=== PATIENT | female | born 2000 | race Caucasian/White ===

== ENCOUNTER 2021-07-26 10:43 | Outpatient (CLI) | payer BC, MEDICAID, SELFPAY ==
[2021-07-28 09:38] LABS: Lymphoma Profile (BBPL) See Report
== END 2021-07-26 10:44 | disposition home or self-care (01) ==
PROVIDERS: PCP Family Medicine; Visit Provider Specialist
DX: R22.1 Localized swelling, mass and lump, neck (principal)
CPT/HCPCS: 88184; 88185; 88309; 88342

== ENCOUNTER 2021-08-02 15:04 | Outpatient (CLI) | payer OTHER, SELFPAY ==
[2021-08-02 16:50] LABS: Basophils # 0.1 10^3/uL (0.0-0.1); Basophils % 0.5 %; Eosinophils # 0.1 10^3/uL (0.0-0.8); Eosinophils % 0.5 %; Hematocrit 44.5 % (37.0-47.0); Hemoglobin 14.3 g/dL (11.5-15.3); Lymphocytes # 1.8 10^3/uL (1.5-6.5); Lymphocytes % 19.4 %; Mean Corpuscular HGB Conc 32.1 g/dL (30.0-36.0); Mean Corpuscular Hemoglobin 27.8 pg (28.0-34.0); Mean Corpuscular Volume 86.6 fl (81-99); Mean Platelet Volume 10.2 fL (7.4-10.4); Monocytes # 0.6 10^3/uL (0.2-0.9); Monocytes % 6.4 %; Neutrophils # 6.63 10^3/uL (1.8-8.0); Neutrophils % 72.5 %; Nucleated Red Blood Cells % 0 %; Platelet Count 468 10^3/cmm (130-400); Red Blood Count 5.14 10^6/uL (4.1-5.3); Red Cell Distribution Width 12.9 % (12.1-15.1); White Blood Count 9.2 10^3/uL (4.5-13.0)
[2021-08-02 17:10] LABS: Alanine Aminotransferase 28 U/L (0-33); Albumin Level 4.4 g/dL (3.5-5.2); Alkaline Phosphatase 58 IU/L (35-105); Anion Gap 13.2 (5-19); Aspartate Amino Transferase 16 U/L (0-32); Blood Urea Nitrogen 12 mg/dL (6-20); Calcium 9.6 mg/dL (8.5-10.5); Carbon Dioxide 24 mmol/L (22-29); Chloride 101 mmol/L (98-107); Globulin 3.7 g/dL (1.3-4.6); Glomerular Filtration Rate 157.3 mL/min (90-130); Glucose 87 mg/dL (65-115); Lactate Dehydrogenase 171 U/L (135-214); Osmolality Calculated 277 mOsm/kg (285-295); Potassium 4.2 mmol/L (3.5-5.1); Sodium 134 mmol/L (136-145); Total Bilirubin 0.2 mg/dL (0.15-1.2); Total Protein 8.1 g/dL (6.6-8.7)
[2021-08-02 17:26] LABS: Erythrocyte Sedimentation Rate 72 mm/hr (0-15)
[2021-08-02 17:33] LABS: Hepatitis A Antibody IgM Non-Reactive (Nonreactive); Hepatitis B Core AB, Total Non-Reactive (Nonreactive); Hepatitis B Surface AB 3.5 (11.5-1000); Hepatitis B Surface Antigen Non-Reactive (Nonreactive); Hepatitis C Virus Antibody Non-Reactive (Nonreactive)
[2021-08-02 19:53] LABS: HIV 1 & 2 Antibody Non-Reactive (Non-Reactiv); HIV 1 & 2 Antigen Non-Reactive (Non-Reactiv)
--- NOTE | 2021-08-03 13:14 | ONC CON_ITS ---
Dr. Stewart New Patient Note Patient: Aby Biswas Unit #: [id number]: 2000 Dicatated By: Armaan Stewart M.D.Date of Visit: Aug 02, 2021 Onc MED New Patient/Consult Referring Physician: Dr. Arian Poe M.D. Chief Complaint: Hodgkin lymphoma. History of Present Illness: This is a 20-year-old woman with newly diagnosed classic Hodgkin lymphoma, nodular sclerosis subtype, involving a left level 4 cervical lymph node. In the latter part of March 2021 she noted abrupt onset of a lump in the left side of her neck. She says it just popped up overnight, and it was initially sore and tender, but it subsequently went down. An ultrasound of the neck on 04/03/2021 showed a large round hypoechoic mass in the left supraclavicular region measuring 1.9 x 1.5 x 1.6 cm. It demonstrated increased peripheral vascularity, but no central vascularity. The findings were consistent with abnormal left supraclavicular mass/lymph node. She was referred to Dr. Poe. Her initial FNA biopsy was nondiagnostic. She had further evaluation with MRI, but I do not have that report available. She ultimately underwent an incisional biopsy of left level 4 cervical lymph node on 07/28/2021. Pathology was consistent with classic Hodgkin lymphoma, nodular sclerosis subtype. By IHC the lymphoma cells were positive for CD15, CD30, Mum 1, and ROMMEL CISH. They were negative for CD20, CD45 LCA, ALK, and CD3. She is seen now for further management. She complains that she is really fatigued. She has noticed that getting worse over a period of a year to year and a half. She is still working, but she is now planning to go down to part-time. Her ECOG score is 1. Her appetite is good and her weight is stable. She has no fever, night sweats, or hot flashes. She has occasional sinus drainage. She has not had sore mouth or throat, and she has no difficulty swallowing. She does not complain of cough, and she has not been having shortness of breath or chest pain. Recently she has had some nausea and she sometimes has acid reflux. Her bowels have been fluctuating between diarrhea and constipation. Bladder function has been okay. Her menstrual periods have been normal. She has had pain occasionally in her left hand following a previous fracture. She has no other joint or bone pain. She currently is not having headache and she does not complain of dizziness. She has no numbness/paresthesia or other focal neurologic symptoms. She does report having some anxiety. Past Medical History: She has a history of migraine headaches and a history of recurrent tonsillitis. She has had no prior ongoing medical illnesses. Past Surgical History: She underwent FNA biopsy of left cervical lymph node followed by incisional biopsy of left level IV cervical lymph node on 07/28/2021. She has had no prior surgeries. Medications: .10/02 1 Tablet Oral daily Allergies: No Known Allergies. Social History: Ms. Biswas is single. She is a nonsmoker, but she occasionally vapes. She does not drink alcohol. Family History: Both parents are in good health, mother at age 63 and father at age 58. A 32-year-old brother has mental illness and he has been treated for pericarditis. A 29-year-old sister is in good health. His maternal grandmother has been treated for a large cell cancer in the chest area, apparently of unknown primary. His maternal grandfather has coronary artery disease. Family history on her father's side is otherwise unknown, as her father was adopted. Review Of Symptoms: Constitutional - She complains that she is really fatigued. Thus far she has maintained normal activity, but she is planning to go down to part-time work. Her appetite has been okay and her weight is stable. She has no fever, night sweats, or hot flashes. ECOG score is 1, Eyes - She has had some decline in vision, ENMT - No hearing loss or tinnitus. She has occasional sinus drainage. No mouth sores. No sore throat or difficulty swallowing, Hematologic/Lymphatic - No abnormal bruising or bleeding, Respiratory - No shortness of breath. No cough. No pleuritic pain or hemoptysis, Cardiovascular - No angina pain. No palpitations, Gastrointestinal - Recently she has had some nausea. She sometimes has acid reflux. Her bowels have fluctuated between diarrhea and constipation. No blood in the stool or black stools, Genitourinary (F) - No dysuria or hematuria. She reports having frequent urination. No urgency or incontinence, Musculoskeletal - She has had pain at times in her left hand subsequent to a previous fracture. She has no other joint or bone pain, Integumentary - No skin rash or other skin changes, Neurologic - She has a history of migraine, but she currently is not complaining of headache or dizziness. She has no numbness/tingling or other focal neurologic symptoms, Psychiatric - She has anxiety but not depression. She sometimes has difficulty sleeping. Vital Signs: Performed on Aug 02, 2021 15:46: 5, 0, 24.60, 1.57 sq.m, 61 in, 96 %, 109 /min (HIGH), 18 /min, 124/84 mm(hg), 97.9 F (LOW), and 130.2 lbs (HIGH). Physical Examination: Constitutional - She appears to be in good general health, Eyes - Sclerae nonicteric. Conjunctivae clear, ENMT - No lesions noted in the oral cavity, Neck - No mass or thyromegaly, Hematologic/Lymphatic - There is some induration at the biopsy site in the medial aspect of the left supraclavicular fossa. There is no cervical, clavicular, or axillary adenopathy noted at this time, Respiratory - Lungs are clear with good air movement bilaterally, Cardiovascular - Heart rhythm is regular. There is no murmur, gallop, or rub noted, Abdomen - Soft and non-tender. Liver and spleen are not enlarged. There is no abdominal mass or ascites noted and there is no inguinal adenopathy, Back/Spine - No spine or CVA tenderness noted, Extremities - No edema. Pedal pulses are palpable bilaterally, Integumentary - No rashes. No suspicious skin lesions noted, Neurologic - No focal neurologic deficits noted. Problem List: 1. Classic Hodgkin lymphoma, nodular sclerosis subtype, involving a left level IV lymph node. 2. History of recurrent tonsillitis. 3. History of migraine headaches. Problems Addressed with this Encounter and Plan: Patient with newly diagnosed classic Hodgkin lymphoma, nodular sclerosis subtype, involving a left level IV cervical lymph node. She has not completed staging, but by clinical evaluation she does appear to have early stage disease, and she should have a favorable prognosis with treatment. The pathology results were reviewed with the patient and her family, and we discussed the clinical implications. She does need a PET scan to complete staging, but assuming she has early stage disease, the probability of cure with appropriate treatment will be very high. The standard treatment for early stage disease would be ABVD chemotherapy for 2 cycles, following which her further treatment will be guided by restaging PET/CT. Given her young age, I am going to recommend that she be seen at a tertiary facility for specific treatment recommendations, either at [facility] or [facility]. Among other things, her management will need to take fertility issues into consideration. The scheduling of the PET/CT was to be initiated by Dr. Poe's office, and I will check on that tomorrow. In the meantime, she will have baseline laboratory studies to include CBC, comprehensive metabolic profile, sed rate, LDH level, TSH level, and HIV and hepatitis screening. Signed By: Armaan Stewart M.D. <<Signature on File>>
== END 2021-08-02 15:05 | disposition home or self-care (01) ==
LOC: ONCMED 15:11
PROVIDERS: PCP Family Medicine; Visit Provider Internal Medicine Medical Oncology
DX: C81.11 Nodular sclerosis Hodgkin lymphoma, lymph nodes of head, face, and neck (principal); J03.91 Acute recurrent tonsillitis, unspecified; Z86.69 Personal history of other diseases of the nervous system and sense organs; Z86.19 Personal history of other infectious and parasitic diseases; Z79.899 Other long term (current) drug therapy
CPT/HCPCS: 36415; 80053; 83615; 85025; 85651; 86705; 86706; 86709; 86803; 87340; 87806; 99205

== ENCOUNTER 2021-08-20 03:06 | Emergency (ER) | payer OTHER, BC, MEDICAID, SELFPAY ==
[2021-08-20] VITALS (14 sets, daily range): BP systolic 105–139; BP diastolic 75–87; PULSE 66–109; RESP 7–31; TEMP 36.2; O2SAT 97–100; BMI 24.5
--- NOTE | 2021-08-20 03:15 | XRR_ITS ---
PROCEDURE INFORMATION: Exam: XR Chest Exam date and time: 08/20/2021 4:00 AM Age: 20 years old Clinical indication: Pain; Chest pressure; Additional info: Cp TECHNIQUE: Imaging protocol: XR of the chest. Views: 1 view. COMPARISON: [place] [facility] [place] Chest 2 views 01/16/2019 4:50 PM FINDINGS: Lungs: Unremarkable. No consolidation. Pleural spaces: Unremarkable. No pleural effusion. No pneumothorax. Heart/Mediastinum: Unremarkable. No cardiomegaly. Bones/joints: Unremarkable. XR/XR chest 1V portable [id number] IMPRESSION: No acute findings.
--- NOTE | 2021-08-20 03:15 | ECG_ITS ---
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 Measurements Intervals [place] Rate: 88 P: 58 ID: [id number] QRS: 61 QRSD: 82 T: 47 QT: 334 QTc: 405 Interpretive Statements SINUS RHYTHM No previous ECG available for comparison Electronically Signed On 08-20-2021 16:10:44 CDT by Nisha Alvarado M.D. [id number]
--- NOTE | 2021-08-20 03:16 | ED_ITS ---
HPI - Chest Pain General: Chief Complaint: Chest Pain Stated Complaint: N\Chest Pains Time Seen by Provider: 08/20/21 03:13 Source: patient Mode of arrival: ambulatory Limitations: no limitations History of Present Illness: 20-year-old female who has a history of Hodgkin's lymphoma states she just began chemotherapy last week states that tonight she started having a sharp pain in the center of her chest. States the pain is 4-5 out of 10 denies any worsening improving factors. She states she has had some shortness of breath. Denies any cough or fever no vomiting or diarrhea. Associated symptoms: Reports dyspnea; Deny abdominal pain, fever(s), nausea or vomiting Review of Systems Const: Denies: fever(s), chills, body aches or change in appetite Eyes: Denies: blurry vision or eye discomfort ENMT: Denies: throat pain or dental pain Card: Reports: chest pain Resp: Reports: dyspnea GI: Denies: abdominal pain, nausea, vomiting or diarrhea : Denies: dysuria Musc: Denies: neck pain or back pain Skin/Breast: Denies: rash Neuro: Denies: headache(s) Psych: Denies: depression Farooq/Lymph: Denies: easy bruising All/Imm: Denies: urticaria PFSH ED PFSH: Medical History (Updated 08/20/21 @ 04:35 by Eugenie Tobias MD) Hodgkin lymphoma Menorrhagia with irregular cycle No pertinent past medical history neghx: htn,dm,thyroid,dvt/pe PCP: Dr. Muse Surgical History No pertinent past surgical history Family History Grandfather Heart disease Maternal grandfather Hypertension Maternal grandfather Mother Hypercholesteremia Denies family history of Colon cancer Ovarian cancer Diabetes Breast cancer Uterine cancer Thyroid disease Stroke Physical Exam Const: COMMON NORMALS: no acute distress, patient oriented x3 and healthy appearing HENMT: COMMON NORMALS: normocephalic and atraumatic HEAD & SCALP: normocephalic and atraumatic Eye: COMMON NORMALS: Equal, round and reactive pupils present and EOMs intact bilaterally PUPIL: Yes Equal, round and reactive pupils present Neck/C-Spine: COMMON NORMALS: full ROM and supple Chest: COMMONS NORMALS: normal inspection of the chest and normal palpation of entire chest wall Resp: COMMON NORMALS: normal respiratory effort, No retractions, No use of accessory muscles and clear to auscultation bilaterally AUSCULTATION: clear to auscultation bilaterally Cardio: COMMON NORMALS: regular rate, regular rhythm and No murmurs present (Cardio) RATE: regular rate RHYTHM: regular rhythm GI: COMMON NORMALS: Normal to inspection, nondistended, normoactive bowel sounds present, Soft to palpation, non-tender and no masses PALPATION: Yes Soft to palpation Extremity: COMMON NORMALS: normal to inspection and full ROM Neuro: COMMON NORMALS: patient oriented x3, moves all extremities and no focal motor deficits Psych: COMMON NORMALS: mental status grossly normal, Normal thought process present and cooperative THOUGHT PROCESS: Normal thought process present Skin: COMMON NORMALS: no rashes or lesions noted and no wounds GENERAL SKIN EXAM: no rashes or lesions noted Course Vital Signs: Vital signs: Vital Signs Temperature 97.2 F L 08/20/21 03:12 Pulse Rate 84 08/20/21 04:15 Respiratory Rate 14 08/20/21 04:15 Blood Pressure 122/79 08/20/21 04:15 Pulse Oximetry 100 08/20/21 04:15 MDM - Chest Pain Medical Decision Making StandsPatient presents for chest pain that is atypical in nature she does have a history of lymphoma D-dimer is mildly elevated CT scan here showed no acute f indings troponins are negative she is stable for discharge is to follow-up with PCP return if worsening to plan. Lab Data : 08/20/21 03:50 08/20/21 03:50 Radiology Impressions Chest X-Ray 08/20/21 03:15 IMPRESSION: No acute findings. Chest CTA 08/20/21 04:15 IMPRESSION: 1. There is no evidence for pulmonary emboli. 2. Soft tissue attenuation anterior mediastinal mass. Prominent lymph nodes are seen in the superior mediastinum as well. These findings are suspicious for a lymphoproliferative disorder such as lymphoma. Teratoma or thymoma are considerations although less likely. Laboratory Results WBC 5.2 10^3/uL (4.5-13.0) 08/20/21 03:50 RBC 4.31 10^6/uL (4.1-5.3) 08/20/21 03:50 Hgb 11.8 g/dL (11.5-15.3) 08/20/21 03:50 Hct 36.9 % (37.0-47.0) L 08/20/21 03:50 MCV 85.6 fl (81-99) 08/20/21 03:50 MCH 27.4 pg (28.0-34.0) L 08/20/21 03:50 MCHC 32.0 g/dL (30.0-36.0) 08/20/21 03:50 RDW 13.0 % (12.1-15.1) 08/20/21 03:50 Plt Count 206 10^3/cmm (130-400) 08/20/21 03:50 MPV 11.5 fL (7.4-10.4) H 08/20/21 03:50 Neut % (Auto) 91.9 % 08/20/21 03:50 Lymph % (Auto) 5.4 % 08/20/21 03:50 [place] % (Auto) 1.3 % 08/20/21 03:50 Eos % (Auto) 0.6 % 08/20/21 03:50 Baso % (Auto) 0.4 % 08/20/21 03:50 Neut # (Auto) 4.79 10^3/uL (1.8-8.0) 08/20/21 03:50 Lymph # (Auto) 0.3 10^3/uL (1.5-6.5) L 08/20/21 03:50 [place] # (Auto) 0.1 10^3/uL (0.2-0.9) L 08/20/21 03:50 Eos # (Auto) 0.0 10^3/uL (0.0-0.8) 08/20/21 03:50 Baso # (Auto) 0.0 10^3/uL (0.0-0.1) 08/20/21 03:50 Nucleated RBC % (auto) 0 % 08/20/21 03:50 Nucleated RBCs # 0.0 /100WBC 08/20/21 03:50 D-Dimer 0.67 ug/mIFEU (0-0.59) H 08/20/21 03:50 Sodium 138 mmol/L (136-145) 08/20/21 03:50 Potassium 3.7 mmol/L (3.5-5.1) 08/20/21 03:50 Chloride 102 mmol/L (98-107) 08/20/21 03:50 Carbon Dioxide 24 mmol/L (22-29) 08/20/21 03:50 Anion Gap 15.7 (5-19) 08/20/21 03:50 BUN 10 mg/dL (6-20) 08/20/21 03:50 Creatinine 0.4 mg/dL (0.5-0.9) L 08/20/21 03:50 GFR Calculation 203.5 mL/min (90-130) H 08/20/21 03:50 Glucose 95 mg/dL (65-115) 08/20/21 03:50 Calculated Osmolality 285 mOsm/kg (285-295) 08/20/21 03:50 Calcium 8.3 mg/dL (8.5-10.5) L 08/20/21 03:50 Total Bilirubin 0.7 mg/dL (0.15-1.2) 08/20/21 03:50 AST 29 U/L (0-32) 08/20/21 03:50 ALT 59 U/L (0-33) H 08/20/21 03:50 Alkaline Phosphatase 43 IU/L (35-105) 08/20/21 03:50 Troponin T Baseline 6 ng/L (0-10) 08/20/21 03:50 Troponin T 120 Minute 6.41 ng/L (0-10) 08/20/21 05:00 Total Protein 6.4 g/dL (6.6-8.7) L 08/20/21 03:50 Albumin 3.8 g/dL (3.5-5.2) 08/20/21 03:50 Globulin 2.6 g/dL (1.3-4.6) 08/20/21 03:50 HCG, Qual Negative (Negative) 08/20/21 03:50 EKG Data EKG 1: I personally reviewed and interpreted this EKG as follows: EKG interpretation date: 08/20/21 EKG interpretation time: 03:16 Interpretation: nsr hr [address] or t wave abnormalities qrs 82 qtc 380 EKG 2: I personally reviewed and interpreted this EKG as follows: EKG interpretation date: 08/20/21 EKG interpretation time: 05:00 Interpretation: nsr hr [address] or t wave abnormalities qrs 84 qtc 379 Discharge Plan Discharge Patient Disposition: Home Clinical Impression: Chest pain Qualifiers: Chest pain type: unspecified Qualified Code(s): R07.9 - Chest pain, unspecified Condition: Stable Prescriptions: No Action acetaminophen [Tylenol] 325 mg capsule 325 mg PO QID PRN0RF norethindrone-e.estradiol-iron [Junel FE 1.5/30 (28)] 1.5 mg-30 mcg (21)/75 mg (7) tablet 1 tab PO DAILY Qty: 84 3RF Discharge Orders: Discharge ED (Routine); Ordered 08/20/21 Ordered By: Eugenie Tobias Referrals: Ricky Vidales DO [Primary Care Provider] - Discharge Diet: Advance as tolerated Discharge Activity: Resume usual activity Patient Instructions: Chest Pain (ED) Coding Level of Care Code ED Operator Automated Process for Chg Fwd Exam Comprehensive
[2021-08-20] MEDS: ondansetron 2 mg/ML SDV 2 mL 4 MG IVP (03:51)
[2021-08-20] MEDS: morphine 4 mg/mL SDV 1 mL IVP (03:57)
[2021-08-20 04:01] LABS: Basophils % 0.4 %; Eosinophils % 0.6 %; Hematocrit 36.9 % (37.0-47.0); Hemoglobin 11.8 g/dL (11.5-15.3); Lymphocytes # 0.3 10^3/uL (1.5-6.5); Lymphocytes % 5.4 %; Mean Corpuscular Hemoglobin 27.4 pg (28.0-34.0); Mean Corpuscular Volume 85.6 fl (81-99); Mean Platelet Volume 11.5 fL (7.4-10.4); Monocytes # 0.1 10^3/uL (0.2-0.9); Monocytes % 1.3 %; Neutrophils # 4.79 10^3/uL (1.8-8.0); Neutrophils % 91.9 %; Nucleated Red Blood Cells % 0 %; Platelet Count 206 10^3/cmm (130-400); Red Blood Count 4.31 10^6/uL (4.1-5.3); White Blood Count 5.2 10^3/uL (4.5-13.0)
[2021-08-20 04:11] LABS: HCG, Serum Qual Negative (Negative)
[2021-08-20 04:12] LABS: D Dimer 0.67 ug/mIFEU (0-0.59)
--- NOTE | 2021-08-20 04:15 | CTR_ITS ---
PROCEDURE INFORMATION: Exam: CTA Chest With Contrast Exam date and time: 08/20/2021 4:42 AM Age: 20 years old Clinical indication: Abnormal findings; Abnormal diagnostic tests; Elevated d-dimer; Dyspnea; Prior surgery; Surgery date: <1 month; Surgery type: Port; Additional info: SOB TECHNIQUE: Imaging protocol: Computed tomographic angiography of the chest with contrast. 3D rendering (Not supervised by radiologist): MIP and/or 3D reconstructed images were created by the technologist. Radiation optimization: All CT scans at this facility use at least one of these dose optimization techniques: automated exposure control; mA and/or kV adjustment per patient size (includes targeted exams where dose is matched to clinical indication); or iterative reconstruction. Contrast material: OMNI 350; Contrast volume: 95 ml; Contrast route: INTRAVENOUS (IV); COMPARISON: CR (CHEST, ) 08/20/2021 4:00 AM RADIATION DOSE METRICS: Total DLP (mGy-cm): 528.04 FINDINGS: Pulmonary arteries: Normal. No pulmonary emboli. Aorta: Unremarkable. No aortic aneurysm. No aortic dissection. Lungs: Unremarkable. No consolidation. No masses. Pleural spaces: Unremarkable. No pneumothorax. No pleural effusion. Heart: Unremarkable. No cardiomegaly. No pericardial effusion. Mediastinal space: There is mildly heterogeneous soft tissue attenuation mass seen in the anterior mediastinum measuring 3.4 cm AP dimension by 4.7 cm transverse dimension and 6.6 cm craniocaudal dimension. This could represent an aggregate of abnormal lymph nodes as seen with lymphoma, a teratoma or thymoma. There are several prominent lymph nodes seen in the superior mediastinum further suggesting a lymphoproliferative disorder. Lymph nodes: See Mediastinal space finding. Bones/joints: Unremarkable. No acute fracture. Soft tissues: Unremarkable. CT/CT angio chest PE protcl [id number] IMPRESSION: 1. There is no evidence for pulmonary emboli. 2. Soft tissue attenuation anterior mediastinal mass. Prominent lymph nodes are seen in the superior mediastinum as well. These findings are suspicious for a lymphoproliferative disorder such as lymphoma. Teratoma or thymoma are considerations although less likely.
[2021-08-20 04:30] LABS: Troponin(5th) Baseline 6 ng/L (0-10)
[2021-08-20 04:31] LABS: Alanine Aminotransferase 59 U/L (0-33); Albumin Level 3.8 g/dL (3.5-5.2); Alkaline Phosphatase 43 IU/L (35-105); Anion Gap 15.7 (5-19); Aspartate Amino Transferase 29 U/L (0-32); Blood Urea Nitrogen 10 mg/dL (6-20); Calcium 8.3 mg/dL (8.5-10.5); Carbon Dioxide 24 mmol/L (22-29); Chloride 102 mmol/L (98-107); Globulin 2.6 g/dL (1.3-4.6); Glomerular Filtration Rate 203.5 mL/min (90-130); Glucose 95 mg/dL (65-115); Osmolality Calculated 285 mOsm/kg (285-295); Potassium 3.7 mmol/L (3.5-5.1); Sodium 138 mmol/L (136-145); Total Bilirubin 0.7 mg/dL (0.15-1.2); Total Protein 6.4 g/dL (6.6-8.7)
[2021-08-20] MEDS: iohexol 350 mg/mL 100 mL Btl IV (04:47)
--- NOTE | 2021-08-20 05:15 | ECG_ITS ---
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 Measurements Intervals [place] Rate: 76 P: 61 MO: 138 QRS: 67 QRSD: 84 T: 54 QT: 348 QTc: 393 Interpretive Statements SINUS RHYTHM Compared to ECG 08/20/2021 03:16:31 No significant changes Electronically Signed On 08-20-2021 16:18:55 CDT by Nisha Alvarado M.D. [id number]
[2021-08-20 05:36] LABS: Troponin 5 2HR 6.41 ng/L (0-10)
== END 2021-08-20 06:05 | disposition home or self-care (01) ==
PROVIDERS: Emergency Provider Emergency Medicine; PCP Family Medicine
DX: R07.9 Chest pain, unspecified (principal); C81.90 Hodgkin lymphoma, unspecified, unspecified site; Z79.899 Other long term (current) drug therapy
CPT/HCPCS: 71045; 71275; 80053; 84484; 84703; 85025; 85378; 93005; 96374; 96375; 99284; J1642; J2270; J2405; Q9967

== ENCOUNTER → 2021-11-17 15:40 | Outpatient (BNVA) | payer OTHER, SELFPAY | PROVIDERS: PCP Nurse Practitioner Family; Visit Provider Nurse Practitioner Women's Health | DX: Z01.419 Encounter for gynecological examination (general) (routine) without abnormal findings (principal) | CPT/HCPCS: 88175 ==

== ENCOUNTER → 2022-06-30 11:39 | Outpatient (BNVA) | payer OTHER, SELFPAY | PROVIDERS: PCP Nurse Practitioner Family; Visit Provider Emergency Medicine | DX: J02.9 Acute pharyngitis, unspecified (principal) | CPT/HCPCS: 87071; 87880 ==

== ENCOUNTER → 2022-11-17 14:07 | Outpatient (BNVA) | payer OTHER, SELFPAY | PROVIDERS: PCP Nurse Practitioner Family; Visit Provider Emergency Medicine | DX: R39.9 Unspecified symptoms and signs involving the genitourinary system (principal) | CPT/HCPCS: 81000 ==

== ENCOUNTER → 2022-12-08 10:24 | Outpatient (BNVA) | payer OTHER, SELFPAY | PROVIDERS: PCP Nurse Practitioner Family; Visit Provider Nurse Practitioner Family | DX: J02.9 Acute pharyngitis, unspecified (principal) | CPT/HCPCS: 87880 ==

== ENCOUNTER → 2023-12-03 14:31 | Outpatient (BNVA) | payer OTHER, SELFPAY | PROVIDERS: PCP Nurse Practitioner Family; Visit Provider Nurse Practitioner Women's Health | DX: Z11.3 Encounter for screening for infections with a predominantly sexual mode of transmission (principal); L68.0 Hirsutism; N92.6 Irregular menstruation, unspecified | CPT/HCPCS: 83525; 84146; 84403; 84439; 84443; 86592; 86803; 87340; 87491; 87591; 87806 ==